=== PATIENT | female | born 1960 | race Caucasian/White ===

== ENCOUNTER 2017-12-12 17:28 | Emergency (ER) | payer OTHER, BC ==
[~2017-12-12] VITALS: Ht 162.6 cm; Wt 70.0 kg
[~2017-12-12 17:28] MED LIST: NAPROSYN500 MG PO; ULTRAM50 MG PO
[2017-12-12] MEDS ORDERED: MOTRIN800 MG PO (20:58)
[2017-12-12] MEDS ORDERED: ULTRACET1 TABLET PO (20:58)
[2017-12-12] MEDS ORDERED: VALIUM2 MG PO (20:58)
[2017-12-12 21:38] VITALS: BP 115/81
== END 2017-12-12 21:40 | disposition home or self-care (01) ==
LOC: EME 17:28 → EXP 17:28
DX: S80.11XA Contusion of right lower leg, initial encounter (principal); S70.01XA Contusion of right hip, initial encounter; S30.0XXA Contusion of lower back and pelvis, initial encounter; W10.9XXA Fall (on) (from) unspecified stairs and steps, initial encounter; F17.200 Nicotine dependence, unspecified, uncomplicated; Z88.0 Allergy status to penicillin
CPT/HCPCS: 72100; 72220; 73502; 73552; 73590; 82948